=== PATIENT | female | born 2000 | race Caucasian/White ===

== ENCOUNTER 2019-08-11 17:54 | Emergency (ER) | payer SELFPAY ==
[2019-08-11 18:04] VITALS: BP 105/70; PULSE 80; TEMP 98.1; BMI 20.1
--- NOTE | 2019-08-11 18:32 | PDOC ---
History of Present Illness - General Chief Complaint: Alcohol intoxication Stated Complaint: INTOX,FELL DOWN STAIRS Time Seen by Provider: 08/11/19 17:56 - History of Present Illness Initial Comments: 08/11/19 18:44 18yo F with no PMH presents to the ED after a fall down a 25-30 stairs at 3pm. Pt was at a constitution party at 3pm, she admitted to drinking "a lot of alcohol" and smoking weed. States she felt intoxicated, like the room was spinning and fell backwards down those stairs with nothing or no one to stop her. States she hit her head multiple times. Denies LOC but is not sure. She is reporting a headache as well as lower back pain. Had 1 episode of NBNB vomiting. +vomiting x1, no visual sxs, Past History - Past Medical History Allergies/Adverse Reactions: Allergies Allergy/AdvReac Type Severity Reaction Status Date / Time No Known Allergies Allergy Verified 08/11/19 17:55 Home Medications: Ambulatory Orders Norethindrone-Ethinyl Estrad [Necon 0.5-35-28 Tablet] 1 each PO DAILY 08/11/19 COPD: No - Immunization History Immunization Up to Date: Yes - Psycho Social/Smoking Cessation Hx Smoking History: Never smoked Have you smoked in the past 12 months: No Information on smoking cessation initiated: No Hx Alcohol Use: Yes (SOCIAL) Drug/Substance Use Hx: Yes (MARIJUANA) *Physical Exam - Vital Signs Last Vital Signs Temp Pulse Resp BP Pulse Ox 98.1 F 80 16 105/70 100 08/11/19 17:55 08/11/19 17:55 08/11/19 17:55 08/11/19 17:55 08/11/19 17:55
[2019-08-11 19:44] LABS: HEMATOCRIT 43.1 % (32.4-45.2); HEMOGLOBIN 14.4 GM/dl (10.7-15.3); MCH 31.9 pg (25.7-33.7); MCHC 33.5 g/dl (32.0-36.0); MEAN CELL VOLUME 95.1 fl (80-96); MEAN PLT VOLUME 7.7 fl (7.5-11.1); PLATELET COUNT 369 K/MM3 (134-434); RBC 4.53 M/mm3 (3.60-5.2); RDW 11.1 % (11.6-15.6)
[2019-08-11 19:55] LABS: ALBUMIN 4.7 g/dl (3.4-5.0); BILIRUBIN,TOTAL 0.8 mg/dl (0.2-1); CALCIUM 9.6 mg/dl (8.5-10); CREATININE 0.8 mg/dl (0.55-1.3); TOT PROT 7.7 g/dl (6.4-8.2)
--- NOTE | 2019-08-11 22:14 | PDOC ---
*Physical Exam - Vital Signs Last Vital Signs Temp Pulse Resp BP Pulse Ox 98.1 F 80 16 105/70 100 08/11/19 17:55 08/11/19 17:55 08/11/19 17:55 08/11/19 17:55 08/11/19 17:55 ED Treatment Course - LABORATORY CBC & Chemistry Diagram: 08/11/19 19:20 08/11/19 19:20 - ADDITIONAL ORDERS Additional order review: Laboratory Results 08/11/19 08/11/19 08/11/19 19:20 19:20 19:20 Sodium 141 Potassium 4.0 Chloride 104 Carbon Dioxide 24 Anion Gap 13 BUN 11.0 Creatinine 0.8 Est GFR (CKD-EPI)AfAm 123.87 Est GFR (CKD-EPI)NonAf 106.88 Random Glucose 107 H Calcium 9.6 Total Bilirubin 0.8 AST 31 ALT 35 Alkaline Phosphatase 61 Total Protein 7.7 Albumin 4.7 Urine Color Yellow Urine Appearance Slightly Urine pH 5.0 Urine Protein Negative Urine Glucose (UA) Negative Urine Ketones Negative Urine Blood Negative Urine Nitrite Negative Urine Bilirubin Negative Urine Urobilinogen 0.2 Ur Leukocyte Esterase Negative Urine HCG, Qual Negative 08/11/19 19:20 RBC 4.53 MCV 95.1 MCHC 33.5 RDW 11.1 L MPV 7.7 Neutrophils % No Result Required. Lymphocytes % No Result Required. - RADIOLOGY Radiology Studies Ordered: Category Date Time Status ABDOMEN & PELVIS CT WITH CONTR [CT] Stat CT Scan 08/11/19 19:[address] W/O CONTR [CT] Stat CT Scan 08/11/19 19:[address] WITH CONTRAST [CT] Stat CT Scan 08/11/19 19:[address] WITHOUT CONTRAST [CT] Stat CT Scan 08/11/19 19:44 Taken Medical Decision Making - Medical Decision Making 08/11/19 22:10 signed out as pending gamez scan. Gamez scan is negative. Patient feels improved and is ambulatory. Will discharge home. Discharge - Discharge Information Problems reviewed: Yes Clinical Impression/Diagnosis: Contusion of back Qualifiers: Encounter type: initial encounter Laterality: unspecified laterality Qualified Code(s): S20.229A - Contusion of unspecified back wall of thorax, initial encounter Condition: Good - Admission No - Additional Discharge Information Health Concerns: you came to Ed because you fell down the stairs. We did cat scans of your brain , chest, abdomen and pelvis, which are all negative. You will likely be sore for a few days because you have a lot of bruises. You should return to the ED for severe pain, vomiting, severe headache, other new or worsening symptoms. Prescription Drug Monitoring Program (I-STOP) results: I-STOP not reviewed - Follow up/Referral - Patient Discharge Instructions Patient Printed Discharge Instructions: DI for Contusion - Post Discharge Activity
== END 2019-08-11 22:20 | disposition home or self-care (01) ==
LOC: FER 17:54
DX: S20.229A Contusion of unspecified back wall of thorax, initial encounter (principal); W10.9XXA Fall (on) (from) unspecified stairs and steps, initial encounter; Y93.89 Activity, other specified; Y92.89 Other specified places as the place of occurrence of the external cause; F10.99 Alcohol use, unspecified with unspecified alcohol-induced disorder; F12.90 Cannabis use, unspecified, uncomplicated
CPT/HCPCS: 36415; 70450-TC; 71260-TC; 72125-TC; 74177-TC; 80053; 81003; 84703; 85025; 99283-25